=== PATIENT | male | born 1990 | race African-American/Black ===

== ENCOUNTER 2019-01-01 05:28 | Emergency (ER) | payer MEDICAID ==
[~2019-01-01] VITALS: Ht 175.3 cm; Wt 68.0 kg
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
[2019-01-01] MEDS ORDERED: HYDROcodone/Acetamin 5/325 tab ORAL ONE (05:45)
[2019-01-01 05:50] VITALS: BP_SYST 135; BP_SYST 151; BP_DIAS 76; BP_DIAS 89
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
[2019-01-01] MEDS ORDERED: IBUPROFEN600 MG ORAL (06:06)
[2019-01-01 06:20] VITALS: BP 151/89
--- NOTE | 2019-01-01 06:27 | Diagnostic Imaging Report ---
EXAM: XR Right Hand Complete, 3 or More Views CLINICAL HISTORY: TRAUMA TECHNIQUE: Frontal, lateral and oblique views of the right hand. COMPARISON: No relevant prior studies available. FINDINGS: Bones/joints: Unremarkable. No acute fracture. No dislocation. Soft tissues: Unremarkable. No radiopaque foreign body. IMPRESSION: No radiographic evidence of acute fracture or dislocation. See separate right wrist radiograph report for additional findings.
--- NOTE | 2019-01-01 06:31 | Diagnostic Imaging Report ---
EXAM: XR Right Wrist Complete, 3 or More Views CLINICAL HISTORY: TRAUMA TECHNIQUE: Frontal, lateral and oblique views of the right wrist. COMPARISON: No relevant prior studies available. FINDINGS: On the oblique view, there is a lucency in the region of the waist of the right scaphoid. This is not well seen on the orthogonal views. 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 Remainder of visualized bony structures are unremarkable. IMPRESSION: Lucency in the region of the waist of the right scaphoid is suspicious for subtle nondisplaced fracture. Recommend correlation with point tenderness and CT for confirmation. Congenital variant lunotriquetral coalition. <MYCVCSECTION> Critical Value Communications 01/01/19 06:41 Call Doctor Regarding Above results, called Stefano Castro MD on 01/01 06:41 (-07:00)
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
== END 2019-01-01 06:36 | disposition home or self-care (01) ==
LOC: EMR 05:40
DX: S63.501A Unspecified sprain of right wrist, initial encounter (principal); Y04.2XXA Assault by strike against or bumped into by another person, initial encounter
CPT/HCPCS: 29125; 99283